=== PATIENT | male | born 1980 | race Caucasian/White ===

== ENCOUNTER 2021-12-22 05:15 | Emergency (ER) | payer OTHER ==
[~2021-12-22] VITALS: Ht 171.4 cm; Wt 86.8 kg
[2021-12-22 05:23] VITALS: BP 145/90
--- NOTE | 2021-12-22 05:26 | NUR ---
Patient ambulated to bed 11.
--- NOTE | 2021-12-22 06:05 | NUR ---
xray at bedside
--- NOTE | 2021-12-22 06:08 | NUR ---
41 y/o male bibs, c/o coughing up blood x2hrs ago. pt reports having a cough x3days. pt states he smokes about 16cigs -1pack. unlabored breathing, no accessory muscle use. a/ox4, gcs-15; skin is normal, warm, and dry; pt is amulatory without assistance. pt is seated in bed with hob raised, bed in lowest position, and rails up x2. hx:bronchitis allergy to pcn
--- NOTE | 2021-12-22 06:22 | NUR ---
er md at bedside discussing pt results
[2021-12-22] MEDS ORDERED: IBUP-2213 PO (06:27)
[2021-12-22] MEDS ORDERED: OMEP40EC23 PO (06:27)
[2021-12-22] MEDS ORDERED: PRED20TA5 PO (06:27)
--- NOTE | 2021-12-22 07:11 | NUR ---
transfer of care report given to franklin lara
[2021-12-22] MEDS ORDERED: AZIT250T4 PO (07:53)
[2021-12-22 08:03] VITALS: BP 138/87
--- NOTE | 2021-12-22 08:03 | NUR ---
Patient discharged with v/s stable. Written and verbal after care instructions given and explained. Patient alert, oriented and verbalized understanding of instructions. Ambulatory with steady gait. All questions addressed prior to discharge. ID band removed. Patient advised to follow up with PMD. Rx of prednisone, ibuprofen, azithromycin, omeprazole (sent) given. Patient educated on indication of medication including possible reaction and side effects. Opportunity to ask questions provided and answered. copy of xray given
== END 2021-12-22 08:03 | disposition home or self-care (01) ==
LOC: MED 05:15
DX: J18.9 Pneumonia, unspecified organism (principal); R04.2 Hemoptysis; F17.200 Nicotine dependence, unspecified, uncomplicated; Z88.0 Allergy status to penicillin; Z79.899 Other long term (current) drug therapy; Z98.890 Other specified postprocedural states
CPT/HCPCS: 71045; 99283; Q0092